=== PATIENT | female | born 1990 | race Two or more races ===

== ENCOUNTER 2017-04-01 01:58 | Emergency (ER) | payer BC ==
[~2017-04-01] VITALS: Ht 162.6 cm; Wt 68.0 kg
--- NOTE | ~2017-04-01 | US67 ---
[facility] A Service of [facility] RADIOLOGY TEXT RESULTS PATIENT: WARREN VOSS LOCATION: [facility] : [birth year] UNIT #: [id number] AGE: [address]: Johny Hughes MD SEX: F ORDER DR: [id number] [address] [address] [id number] MR#: [id number] Acc #: [id number] NAME: WARREN VOSS : 1990 SEX: F STUDY DATE/TIME: 04/01/2017 9:23 UNIT: [facility] ROOM: STUDY DESCRIPTION: Gallbladder Attending Physician: Johny Hughes M.D. Ordering Physician: Johny Hughes M.D. Primary Care Physician: No Primary Care Physician MEDICAL IMAGING REPORT This report is preliminary unless electronic signature is present EXAM Right upper quadrant ultrasound INDICATION Right upper quadrant abdominal pain for [address] abdomen and pelvis dated 04/01/2017. FINDINGS Visualized portion of the pancreas are normal. Echogenicity and echotexture of the hepatic parenchyma is normal. No hepatic mass. The intrahepatic and extrahepatic bile ducts are normal in caliber. The common duct is normal in size measuring 3 mm. There are some gallstones in the gallbladder. No gallbladder wall thickening or pericholecystic fluid. There is borderline gallbladder distension. Sonographic Wilde's sign is reported as negative. The right kidney measures 10 cm. Renal cortical thickness and echogenicity is normal. No hydronephrosis. No ascites. IMPRESSION 1. Cholelithiasis. There is borderline gallbladder distension, however, no gallbladder wall thickening, or pericholecystic fluid. 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 Dictated by... Prem Kilgore M.D. [facility] A Service [facility] RADIOLOGY TEXT RESULTS PATIENT: WARREN VOSS LOCATION: [facility] : [birth year] UNIT #: [id number] AGE: [address]: Johny Hughes MD SEX: F ORDER DR: THIS IS AN ELECTRONICALLY VERIFIED REPORT Prem Kilgore M.D. at 04/02/2017 11:47 AM JANA/thien TD: 04/02/2017 10:42 JOB #: [id number] MEDICAL IMAGING REPORT Page 1 of 1 COPY
--- NOTE | ~2017-04-01 | CT2 ---
[facility] A Service of [facility] RADIOLOGY TEXT RESULTS PATIENT: WARREN VOSS LOCATION: [facility] : [birth year] UNIT #: [id number] AGE: [address]: Johny Hughes MD SEX: F ORDER DR: [id number] [facility] [address] [facility]. [place], [place] [address] [id number] MR#: [id number] Acc #: [id number] NAME: WARREN VOSS : 1990 SEX: F STUDY DATE/TIME: 04/01/2017 5:53 UNIT: [facility] ROOM: STUDY DESCRIPTION: CT Abd and Pelv W Cont Attending Physician: Johny Hughes M.D. Ordering Physician: John Borrero M.D. Primary Care Physician: No Primary Care Physician MEDICAL IMAGING REPORT This report is preliminary unless electronic signature is present EXAM CT of the pelvis with contrast. INDICATION Abdominal, diaphragm pain for [address] images were obtained from the diaphragm to the symphysis pubis following administration of intravenous contrast material. This CT exam was performed with one or more of the following radiation dose reduction techniques: automatic exposure control, adjustment of mA and/or kV according to patient size, and iterative reconstruction. FINDINGS Images through the lung bases demonstrates minimal atelectasis. Stomach, proximal small bowel, spleen, adrenal glands kidneys and pancreas all appear unremarkable, as is the liver. I do question if the gallbladder is mildly distended with some subtle wall thickening. Findings are very subtle. No stones or sludge are seen but given history would suggest further characterization with gallbladder ultrasound. No free fluid or adenopathy is seen within the abdomen. There is no evidence of mechanical bowel obstruction. The appendix is visualized and is within normal limits. Urinary bladder is normal. Patient has a hemorrhagic cyst within the left ovary. Right ovary is normal. Small area of free fluid is seen within the pelvis. Certainly could be a physiologic finding in a 26-year-old woman. GI tract appears normal. Patient does appear to have Bartholin gland cyst within the perineum. Review of bony windows does not demonstrate any aggressive osseous abnormalities. IMPRESSION 1. Gallbladder appears mildly prominent. I also question if perhaps [facility] A Service of [facility] & [facility] RADIOLOGY TEXT RESULTS PATIENT: CORNEL VOSSIALDavid LOCATION: [facility] : [birth year] UNIT #: [id number] AGE: [address]: Johny Hughes MD SEX: F ORDER DR: there is some very subtle wall thickening. While no obvious stones or sludge are identified within the gallbladder on these images given history to suggest further characterization with gallbladder ultrasound. 2. The appendix is visualized and is within normal limits. 3. Hemorrhagic cyst on the left ovary. Please see the body of the report for any other additional incidental findings. Dictated by... Jess Ríos M.D. THIS IS AN ELECTRONICALLY VERIFIED REPORT Jess Ríos M.D. at 04/02/2017 5:01 PM AFF/gz TD: 04/02/2017 09:51 JOB #: [id number] MEDICAL IMAGING REPORT Page 1 of 1 COPY
[2017-04-01] MEDS ORDERED: PRENATAL MULTI1 EAC3 (02:04)
[2017-04-01 03:51] LABS: BASOPHIL% 0.2 % (0-2.5); EOSINOPHIL% 0.3 % (0.0-7.0); HEMATOCRIT 44.5 % (35.0-45.0); LYMPHOCYTE# 2.6 X10e3 (1.0-3.5); LYMPHOCYTE% 17.8 % (17.0-45.0); MEAN CELL VOLUME 98.2 FL (83-96); MEAN CORPUSCULAR HEMOGLOBIN 33.2 PG (28-34); MEAN CORPUSCULAR HGB CONC 33.8 g/dL (30-36); MEAN PLATELET VOLUME 8.4 FL (6.5-11.5); MONOCYTE# 0.8 X10e3 (0-1.0); MONOCYTE% 5.4 % (3.0-12.0); NEUTROPHIL# 11.3 X10e3 (1.5-7.1); NEUTROPHIL% 76.3 % (40-75); PLATELET COUNT 227 X10e3 (140-420); RED BLOOD COUNT 4.53 X10e (3.90-5.30); RED CELL DISTRIBUTION WIDTH 11.7 % (11.0-15.5); WHITE BLOOD COUNT 14.9 X10e3 (4.0-10.5)
[2017-04-01 03:53] LABS: DIFF IND NO
[2017-04-01 04:18] LABS: ALBUMIN SERUM 4.5 g/dL (3.5-5.0); BILIRUBIN,TOTAL 0.4 mg/dL (0.2-2.0); BUN/CREATININE RATIO 12.72; CALCIUM SERUM 9.2 mg/dL (8.4-10.2); CREATININE SERUM 1.1 mg/dL (0.6-1.4); GLOM FILT RATE Estimated 68.3 mL/min (>60); POTASSIUM 3.3 mmol/L (3.5-5.1); PROTEIN TOTAL SERUM 7.8 g/dL (6.0-8.3)
[2017-04-01 04:28] LABS: BILIRUBIN, DIRECT 0.1 mg/dL (0.0-0.2); BILIRUBIN,INDIRECT 0.3 mg/dL (0.0-0.9)
[2017-04-01 06:24] LABS: URINE SOURCE CLEAN CATCH
[2017-04-01 06:35] LABS: URINE APPEARANCE CLEAR; URINE BILIRUBIN NEG (NEG); URINE BLOOD NEG (NEG); URINE COLOR YELLOW; URINE GLUCOSE NEG (NEG); URINE KETONE 2+ (NEG); URINE LEUKOCYTE ESTERASE NEG (NEG); URINE NITRATE NEG (NEG); URINE PH 7.5 (5-8); URINE PROTEIN NEG (NEG); URINE SPECIFIC GRAVITY 1.018 (1.003-1.035)
[2017-04-01 06:41] LABS: CULTURE INDICATED? NO
== END 2017-04-01 10:25 | disposition home or self-care (01) ==
LOC: CED 01:58
PROVIDERS: Emergency Medicine
DX: K80.70 Calculus of gallbladder and bile duct without cholecystitis without obstruction (principal); Z88.2 Allergy status to sulfonamides
CPT/HCPCS: 36415; 74177; 76705; 80048; 80076; 81003; 82150; 83690; 84703; 85025; 96374; 96375; 96376; 99284; J1885; J2270; J2405; Q9967